=== PATIENT | female | born 1995 | race Two or more races ===

== ENCOUNTER 2024-12-23 16:41 | Emergency (ER) | payer MEDICAID, OTHER ==
[~2024-12-23] VITALS: Ht 154.9 cm; Wt 90.3 kg
--- NOTE | 2024-12-23 18:33 | ED.PDOC ---
HPI (NEURO) HPI Comments PT REPORTS ALBERTO STARTED YESTERDAY, NOTES HAVING PIMPLE IN NOSE WHEN PAIN BEGAN. DENIES INJURY OR TRUAMA. NO OTHER SYMPTOMS REPORTED Chief Complaint: Headache Time Seen by MD: 18:03 Primary Care Provider: UNKNOWN Reviewed Notes: Nurses Notes, Medications, Allergies Information Source: Patient Mode of Arrival: Ambulatory Past Medical History PAST MEDICAL HISTORY: Denies Surgical History: Denies all surgeries [employer] History: No Pertinent [employer] History Family History Family History: Reviewed,noncontributory to illness Social History Smoker: Non-Smoker Alcohol: Denies ETOH Use Drugs: Denies Drug Use Constitutional: denies: chills, diaphoresis, fatigue, fever, malaise, sweats, weakness, others EENTM: denies: blurred vision, double vision, ear bleeding, ear discharge, ear drainage, ear pain, ear ringing, eye pain, eye redness, hearing loss, mouth pain, mouth swelling, nasal discharge, nose bleeding, nose congestion, nose pain, photophobia, tearing, throat pain, throat swelling, voice changes, others Respiratory: denies: cough, hemoptysis, orthopnea, SOB at rest, shortness of breath, SOB with excertion, stridor, wheezing, others Cardiovascular: denies: chest pain, dizzy spells, diaphoresis, Dyspnea on exertion, edema, irregular heart beat, left arm pain, lightheadedness, palpitations, PND, syncope, others Gastrointestinal: denies: abdomen distended, abdominal pain, blood streaked bowels, constipated, diarrhea, dysphagia, difficulty swallowing, hematemesis, melena, nausea, poor appetite, poor fluid intake, rectal bleeding, rectal pain, vomiting, others Genitourinary: denies: abnormal vagina bleeding, burning, dyspareunia, dysuria, flank pain, frequency, hematuria, incontinence, pain, , vagina discharge, urgency, others Neurological: reports: headache; denies: dizziness, fainting, left sided numbness, left sided weakness, numbness, paresthesia, pre-existing deficit, right sided numbness, right sided weakness, seizure, speech problems, tingling, tremors, weakness, others Musculoskeletal: denies: back pain, gout, joint pain, joint swelling, muscle pain, muscle stiffness, neck pain, others Integumetry: reports: rash (on nose ); denies: bruises, change in color, change in hair/nails, dryness, laceration, lesions, lumps, wounds, others Allergic/Immunocompromised: denies: Difficulty Healing, Frequent Infections, Hives, Itching, others Hematologic/Lymphatic: denies: anemia, blood clots, easy bleeding, easy bruising, swollen glands, others Endocrine: denies: excessive hunger, excessive sweating, excessive thirst, excessive urination, flushing, intolerance to cold, intolerance to heat, unexplained weight gain, unexplained weight loss, others Psychiatric: denies: anxiety, bipolar disorder, depression, hopeless, panic disorder, schizophrenia, sleepless, suicidal, others Physical Exam General Appearance: No Apparent Distress, Normal HEENT: Normal ENT Inspection, Pharynx Normal, TMs Normal Neck: Full Range of Motion, Non-Tender Respiratory: Lungs Clear, No Respiratory Distress, Normal Breath Sounds Cardiovascular: No Edema, No JVD, No Murmur, No Gallop, Normal Peripheral Pulses, Regular Rate/Rhythm Breast Exam: Deferred Gastrointestinal: No Organomegaly, Non Tender, No Pulsatile Mass, Normal Bowel Sounds, Soft Genitalia: Deferred Pelvic: Deferred Rectal: Deferred Extremities: No calf tenderness, Normal range of motion, No pedal edema Musculoskeletal : Apperance: Normal Neurologic: Alert, No Motor Deficits, Normal Affect, Normal Mood, No Sensory Deficits Cerebellar Function: Normal Reflexes: Normal Skin: Dry, Normal Color, Rash (crusted, brown lesion on tip of nose. no drainage or erythema), Warm Lymphatic: No Adenopathy Was a procedure done? Was a procedure done?: No Differential Diagnosis (SZ) Headache: Migraine, Epidural Hemorrhage, Intracerebral Hemorrhage, Subarachnoid Hemorrhage, Subdural Hemorrhage, Meningitis X-Ray, Labs, Meds, VS Vital Signs Date Time Temp Pulse Resp B/P (MAP) Pulse Ox O2 Delivery O2 Flow Rate FiO2 12/23/24 17:37 97.8 80 17 146/74 (98) 98 97.8 X-Ray, Labs, Meds, VS Comment Patient given sumatriptan and Decadron 10 mg IM reports improvement in migraine requesting discharge at this time. Script trial of sumatriptan and Bactroban for impetigo. Advised take medications as prescribed side effects discussed. Advised to rest increase p.o. fluids with electrolytes. Follow up with your PCP in 2-3 days. Return precautions given patient indicates understanding and agrees with discharge plan of care. Time of 1ST Reevaluation: 18:33 Reevaluation 1ST: Unchanged Time of 2ND Reevaluation: 19:04 Reevaluation 2ND: Improved Patient Education/Counseling: Diagnosis, Treatment, Prognosis, Need For Follow Up Family Education/Counseling: No Family Present Departure 1 Departure Time of Disposition: 19:04 Impression: Primary Impression: Impetigo Additional Impression: Headache Qualified Codes: G44.209 - Tension-type headache, unspecified, not intractable Disposition: HOME / SELF CARE / HOMELESS Condition: Stable e-Prescriptions Sumatriptan Succinate (Sumatriptan Succinate) 25 Mg Tab 25 MG PO ONCE PRN for 3 Days, #6 TAB Take 1 tablet by mouth at the onset of headache. May repeat 1 more tab 2 hours after if headache continues. Prov: DAVID RUEDA 12/23/24 Mupirocin (Pseudomonas Fluores (Mupirocin) 2 % Oin 2 % EX BID for 7 Days, #15 OIN Prov: DAVID RUEDA 12/23/24 Discharged With: Self Critical Care Note Critical Care Time?: No Stability Stability form required: No DAVID RUEDA Dec 23, 2024 18:33
[2024-12-23] MEDS ORDERED: SUMA25TA2 PO (19:08)
[2024-12-23] MEDS ORDERED: MUPI2OIN2 EX (19:08)
[2024-12-23 19:47] VITALS: BP 133/77; PULSE 72; RESP 16; TEMP 98.1; O2SAT 99
== END 2024-12-23 19:49 | disposition home or self-care (01) ==
LOC: ER 16:41
DX: L01.00 Impetigo, unspecified (principal); R51.9 Headache, unspecified
CPT/HCPCS: 96372; 99283; J1100